=== PATIENT | female | born 1995 | race Two or more races ===

== ENCOUNTER 2024-03-16 14:57 | Emergency (ER) | payer MEDICAID, SELFPAY ==
--- NOTE | 2024-03-16 15:36 | XR_ITS ---
Examination: PA lateral chest 2 views TECHNIQUE: Upright PA lateral chest 2 views Exam date and time: March 16, 2024 1545 hours INDICATIONS: Coughing fever muscle aches beginning 3 days ago. FINDINGS: Normal heart size. Lungs are clear. The osseous structures are intact IMPRESSION: No active disease
[2024-03-16 15:44] VITALS: BP 130/82; PULSE 100; RESP 18; TEMP 36.9; O2SAT 97
[2024-03-16 15:45] VITALS: BMI 35.2
[2024-03-16 17:27] LABS: Respiratory Syncytial Virus Ag Negative (Negative); Strep A Rapid Negative (Negative)
--- NOTE | 2024-03-16 17:46 | PD.EDURI ---
Upper Respiratory Inf. RME/HPI General Chief Complaint: Flu Like Symptoms Stated Complaint: COUGH, FEVER, MUSCLE ACHES X 3 DAYS; 1200 MOTRIN Time Seen by Provider: 03/16/24 15:07 Arrival date/time: 03/16/24 14:57 28-year-old female presents the emergency department complains of cough, fever, body aches ongoing x 3 days there are no other associated symptoms or aggravating factors no other modifying factors, patient denies taking medication before coming to ER today Limitations: no limitations Related Data Previous Rx's ?Medication ?Instructions ?Recorded benzonatate 100 mg capsule 100 mg PO TID #14 caps 03/16/24 ibuprofen 800 mg tablet 800 mg PO TID PRN pain #30 tabs 03/16/24 prednisone 10 mg tablet 30 mg (3 x 10 mg) PO BID 3 days 03/16/24 #18 tabs Allergies Allergy/AdvReac Type Severity Reaction Status Date / Time No Known Allergies Allergy Verified 03/16/24 14:59 Review of Systems Review of Systems Systems Reviewed: All systems reviewed, normal except as documented Constitutional Constitutional: Reports system reviewed and no additional complaints, except as documented, Denies fever(s) and Denies headache(s) Eyes Eyes: Reports system reviewed and no additional complaints, except as documented and Denies blurry vision ENT Ears, Nose, Mouth, and Throat: Reports system reviewed and no additional complaints, except as documented, Denies headache(s), Reports nasal congestion and Reports nasal discharge Cardiovascular Cardiovascular: Reports system reviewed and no additional complaints, except as documented, Denies chest pain and Denies dyspnea Respiratory Respiratory: Reports system reviewed and no additional complaints, except as documented, Reports chest congestion, Reports cough and Denies dyspnea Gastrointestinal Gastrointestinal: Reports system reviewed and no additional complaints, except as documented and Denies abdominal pain Integumentary/Breasts Skin/Breast: Reports system reviewed and no additional complaints, except as documented and Denies rash Neurologic Neurologic: Reports system reviewed and no additional complaints, except as documented, Reports as per HPI and Denies headache(s) Past Medical History Past Medical History NEUROLOGIC: Negative Neurological Disorders CARDIAC: Negative Cardiac Disorders Social History SMOKING STATUS: Never smoker ED Exam General Limitations: Present no limitations General appearance: Present alert and in no apparent distress Head Head exam: Present atraumatic, normocephalic and normal inspection Eye Eye exam: Present normal appearance, PERRL and EOMI; Absent conjunctival injection ENT ENT exam: Present normal exam, normal oropharynx and mucous membranes moist Neck Neck exam: Present normal inspection, full ROM and trachea midline Chest Chest inspection: Present normal inspection and symmetric chest wall rise Respiratory Respiratory exam: Present normal lung sounds bilaterally; Absent respiratory distress, wheezes, stridor or accessory muscle use Cardiovascular Cardiovascular exam: Present regular rate, normal rhythm and normal heart sounds Abdominal Exam Abdominal exam: Present soft and normal bowel sounds; Absent distention, tenderness, guarding, rebound or rigidity Extremities Exam Extremities exam: Present normal inspection and full ROM Back Exam Back exam: Present normal inspection and full ROM Neurological Exam Neurological exam: Present alert, oriented X3 and CN II-XII intact Psychiatric Psychiatric exam: Present normal affect and normal mood Skin Skin exam: Present warm, dry, intact and normal color Course Quality Measures none Orders Category Date Time Status Bedside Influenza A&B Antigen Test NOW Care 03/16/24 15:07 Completed XR chest 2V Stat Exams 03/16/24 15:36 Completed RSV [Respiratory Syncytial Virus Ag] Stat Lab 03/16/24 16:07 Completed Strep A Rapid Stat Lab 03/16/24 16:07 Completed Vital Signs Vital signs: Vital Signs Temperature 98.4 F 03/16/24 15:44 Pulse Rate 100 03/16/24 15:44 Respiratory Rate 18 03/16/24 15:44 Blood Pressure 130/82 03/16/24 15:44 Pulse Oximetry (%) 97 03/16/24 15:44 Oxygen Delivery Method Room Air 03/16/24 15:44 O2 saturation 975 r/a wnl Upper Respiratory Infection MDM Narrative MDM Narrative:: 28-year-old female presents the emergency department complains of cough, fever, body aches ongoing x 3 days there are no other associated symptoms or aggravating factors no other modifying factors, patient denies taking medication before coming to ER today On exam patient well-appearing patient does not appear ill or toxic and in no acute distress I suspect patient has influenza based on her symptoms Patient checked for flu and COVID patient did test positive for the flu Patient discharged home in no distress to follow-up with primary care doctor in the next 24 to 48 hours and for any worsening symptoms to return to the ER immediately Patient data External records reviewed:: [facility] previous records Clinical information provided by:: patient Social determinants that could affect healthcare access:: none Patient has the following chronic illnesses:: none How is presenting disease/condition affected by chronic disease/condition?: no chronic disease Evaluation data The following diagnostics were reviewed and interpreted by me:: lab results and radiology exam(s) Lab and/or radiology exams considered but not ordered:: Labs and radiology obtained Interpretation Summary: Reviewed by me Medications / Prescriptions Medications or Prescriptions considered but not ordered:: Given Medication administrations:: Given Consultations Consultation(s) initiated? (list below): No Diagnosis Upper Respiratory Differential Diagnosis: upper respiratory infection, sinusitis, viral infection, bronchitis and pharyngitis Most likely diagnosis given after review of the tests above:: URI Admission Indicated Admission indicated?: not indicated Admission Request Was there a request for admission?: No Disposition Plan Disposition Plan: Discharge Discharge Attestation Discharge Attestation: The patient and all family members were given an opportunity to ask questions and understood the discharge instructions. Discharge instructions specifically effects, indications for sooner follow up or return to the emergency department, and the expected course of current diagnosis. Patient condition: Stable Discharge Plan Plan Patient Disposition: HOME (Self Care) Disposition Comment: Stable Prescriptions/Referrals Prescriptions/Med Rec: New prednisone 10 mg tablet 30 mg PO BID 3 Days Qty: 18 0RF ibuprofen 800 mg tablet 800 mg PO TID PRN (Reason: pain) Qty: 30 0RF benzonatate 100 mg capsule 100 mg PO TID Qty: 14 0RF Referrals: Sander Gonzalez MD [Primary Care Provider] - In 1 week Problem List Clinical Impression: Upper respiratory infection Patient/Caregiver Discharge Instructions Education Materials: ED URI, Viral, No Abx (Adult) Additional Instructions: Please follow up with your primary care doctor in the next 24-48hrs for any worsening symptoms return here immediately Print Language: Dutch Stand Alone Forms: Priyanka Award Info., Work/School Release, Patient Portal Info Letter PA/MELANIE Supervising Physician PA/MELANIE Supervising Physician: Dr. Cintron
--- NOTE | 2024-03-16 19:35 | PC.NURSE ---
NO ANSWER FOR DC PAPERS
--- NOTE | 2024-03-16 19:51 | PC.NURSE ---
NO ANSWER FOR DC PAPERS
== END 2024-03-16 20:08 | disposition home or self-care (01) ==
PROVIDERS: Nurse Practitioner Primary Care; Emergency Provider Emergency Medicine; PCP Family Medicine
DX: J06.9 Acute upper respiratory infection, unspecified (principal)
CPT/HCPCS: 71046; 87634; 87651; 99283

== ENCOUNTER 2024-06-26 09:40 | Outpatient (AMB) | payer MEDICAID, SELFPAY ==
--- NOTE | 2024-06-26 09:44 | OBCLNT_ITS ---
Vital Signs 06/26/24 09:54 Height 1.68 m Height Method Stated Weight 103.079 kg Weight Measurement Method Standing Scale BMI 36.6 BP 112/74 Blood Pressure Source Automatic Cuff Blood Pressure Location Left Upper Arm Position Sitting Respiration 12 Pulse 63 Pulse Source Monitor Temp 97.7 F Temp Source Oral Pulse Oximetry (%) 99 Oxygen Delivery Method Room Air Allergies/Home Meds Allergies & Medications Allergies No Known Allergies Allergy (Verified 06/26/24 09:55) Medication Reconciliation benzonatate 100 mg capsule 100 mg PO TID #14 caps 03/16/24 [Rx Confirmed 06/26/24] Intake Visit Data Collection New Patient or Established: Established Patient (seen at [facility] within 3 years) Reason for Visit:: First visit for Seen by Clinical Staff ONLY (RN/MA): No [place] Ma[place] Required: No Do You Feel Safe at Home: Yes Authorities Contacted: N/A PCP or OBGYN visit in last 3 months: Yes Hx Now: Yes Are you currently on any form of Control: No Last menstrual period: 04/25/24 Pain Present Currently: No Pain Scale Used: Jerome-Spann/Numerical Pain scale:: 0 Smoking Status Smoking Status: Never smoker Questionnaires Covid-19 Vaccine Questionnaire Has patient been vacinated for Covid-19 Have you been vacinated for Covid-19: No PHQ-9 PHQ-2 Over the last 2 weeks, how often have you been bothered by any of the following problems? 1. Little interest or pleasure in doing things: not at all 2. Feeling down, depressed, or hopeless: not at all Total score: 0 PHQ-9 3. Trouble falling or staying asleep, or sleeping too much: Not at all 4. Feeling tired or having little energy: Not at all 5. Poor appetite or overeating: Not at all 6. Feeling bad about yourself - or that you are a failure or have let yourself or your family down: Not at all 7. Trouble concentrating on things, such as reading the newspaper or watching television: Not at all 8. Moving or speaking so slowly that other people could have noticed? - Or the opposite - being so fidgety or restless that you have been moving around a lot more than usual: not at all 9. Thoughts that you would be better off or of hurting yourself in some way: Not at all Total score: 0 Source: Developed by Drs. Lonny Rizzo, Shakila Agarwal, Greyson Welch and colleagues, with an educational kellie from [employer]. Depression screen completed yes Social History Living Situation History Marital Status: Single Lives With: Family Housing: House Tobacco History Smoking Status: Never smoker Second Hand Smoke Exposure: No Alcohol History Alcohol Intake: Never Domestic Abuse History Do You Feel Safe at Home: Yes Past Medical History Past Medical History Have you ever been diagnosed with any of the following: Neurological Problems Cerebrovascular Accident (CVA): No Transient Ischemic Attacks (TIA): No Dementia: No Alzheimer's Disease: No Parkinson's Disease: No Brain Tumor: No Seizures: No Guillain-[place] Syndrome: No Lyons's Palsy: No Cardiology Problems Myocardial Infarction: No Cardiac Arrhythmia: No Atrial Fibrillation: No Angina: No Rheumatic Fever: No Cardiomyopathy: No Edema: No Hypertension: No Respiratory Problems Chronic Obstructive Pulmonary Disease (COPD): No Asthma: No Bronchitis: No Emphysema: No Pneumonia: No Pulmonary Fibrosis: No Tuberculosis: No Pulmonary Embolism: No Pulmonary Edema: No Sleep Apnea: No CPAP Dependent: No Respiratory Aspiration: No Hx Cough: No Cough: No Wheezing: No Chest Deformities: No Smoking: No Smoking Cessation Counseling: No Smoking Exposure: No Tobacco Use: No Stomache/Intestinal Problems Liver Cancer: No Hepatitis: No Cirrhosis: No Pancreatic Cancer: No Pancreatitis: No Celiac Disease: No Gall Bladder Disease: No Clark's Esophagus: No Genital/Urinary Problems Chronic Kidney Disease: No Renal Disease: No Kidney Stones: No Polycystic Kidney Disease: No Neurogenic Bladder: No Reproductive Problems Breast Cancer: No Genital Herpes: No Gonorrhea: No Pelvic Inflammatory Disease: No Polycystic Ovarian Syndrome: No Previous Pregnancies: Yes Musculoskeletal Problems Muscular Dystrophy: No Myasthenia Gravis: No Marfan's Syndrome: No Bone Cancer: No Arthritis: No Fractures: No Head,Eye,Nose,Throat Problems Cataracts: No Glaucoma: No Blind: No Retinal Detachment: No Endocrine Problems Diabetes Mellitus Type 1: No Diabetes Mellitus Type 2: No Hypoglycemia: No [place]'s Syndrome: No Wilfred's Disease: No Hyperthyroidism: No Adrenal Disease: No Graves' Disease: No Blood Problems Anemia: No Leukemia: No Hemophilia: No Thalassemia: No Sickle Cell Disease: No Clotting Problems: No Psychologic Problems Depression: No Anxiety: No Other Problems Hospitalization: No Autoimmune Disease: No Down Syndrome: No Autism: No Measles: No Mumps: No Rubella (Macanese Measles): No Hepatitis A: No Hepatitis B: No Hepatitis C: No Cancer: No Cervical Cancer: No Lung Cancer: No Surgical History Angioplasty: No Appendectomy: No Bariatric Surgery: No Breast Surgery: No Cancer Surgery: No Carotid Endarterectomy: No Pacemaker: No Sinus Surgery: No Ureter Stent: No History of Present Illness HPI Narrative Rosaura Holman, a multiparous woman with a history of two vaginal deliveries and one , presents for her first visit of her current . Her last menstrual period was on April 25, 2024, making her approximately 8 weeks and 6 days at the time of this visit. The patient reports no major issues during her previous pregnancies, including no history of gestational diabetes, hypertension, or preeclampsia. She has been taking [id number] vitamins. When asked about common symptoms, Rosaura denies experiencing any significant nausea or vomiting. Rosaura's obstetric history is notable for three previous pregnancies, all spaced approximately three years apart. Her youngest child will be [age] years old in December. All of her previous deliveries occurred at [facility]. The patient currently resides in [facility]. Surgical History - section () for third - Two vaginal deliveries prior to Medications and Supplements - vitamins - Bought [id number] Social History - Living Situation: Lives in [facility] - Children: Has three children, each spaced 3 years apart Review of Systems Gastrointestinal: Negative for nausea, vomiting. OB Ultrasound OB Ultrasound Ultrasound technique: transabdominal Gestational sac assessment: Presence, location, size, shape: - Gestational age: 9 weeks - heartbeat: 154 bpm - sac: Present, round - Placenta: Present OB Initial Visit OB Flowsheet OB Flowsheet Initial Weight: Not Recorded Date -?-?-?-?-?-?-?-?-?-?-?-?- EGA Weight Edema CTX Effacement BP Fundal ht Pres Dilation Effacement Station Visit Note Alb Glu FHR Mov 06/26/24 -?-?-?-?-?-?-?-?-?-?-?-?- 9w 0d 103.079 kg 112/74 Ivis Holman is a (3 vaginal deliveries, 1 ) presenting for her first visit at 8 weeks and 6 days gestation based on LMP. - Perform initial lab work incl uding blood type, infection screening - Order genetic screening for Down syndr ome and other genetic abnormalities - Transfer care to [facility] [place] t 28-30 weeks gestation due to history of and current hospital's policy - Schedule 4-week follow-up appointment for next obstetric sonogram. - Continue [id number] vit amins - Provide education on option for gender reveal from genetic screening results - Follow up in 4 weeks for next obstetric sonogram 154 Menstrual History Menstrual reliability: definite Flow: normal Menstrual regularity: regular Monthly: Yes Age at menarche: 15 On control pills at conception: No Associated symptoms (LMP): Denies amenorrhea, nausea, vomiting, fatigue, breast tenderness, urinary frequency, irritability, bloating or other OB History : 5 Para: 3 Hx Total # of Abortions (Spontaneous & Elective): 1 # of Living Children: 3 Infection History & Risk Evaluation History of STDs: none Genetic Screening & History Genetic Screening/Teratology Counseling - Includes patient, baby's father, or anyone in either family with: 1. Patient's age 35 years or older as of estimated date of delivery: No 2. Thalassemia (Arabic, Latvian, Mediterranean, or Background); MCV less than 80: No 3. Neural Tube Defect (Meningomyelocele, Spina Bifida, or Anencephaly): No 4. Congenital Heart Defect: No 5. Down Syndrome: No 6. Steven-Sachs (Ashkenazi Uatsdin, Cajun, Georgian Icelandic): No 7. Jimmy Disease (Ashkenazi Uatsdin): No 8. Familial Dysautonomia (Ashkenazi Uatsdin): No 9. Sickle Cell Disease or Trait (): No 10. Hemophilia or other blood disorders: No 11. Muscular Dystrophy: No 12. Cystic Fibrosis: No 13. Tama's Chorea: No 14. Mental Retardation/Autism: No 15. Other inherited genetic or chromosomal disorder: No 16. Maternal Metabolic Disorder (EG,TYPE 1 Diabetes, PKU): No 17. Patient or baby's father had a child with defects not listed above: No 18. Recurrent loss or a stillbirth: No 19. Medications (including supplements, vitamins, herbs or otc drugs)/illicit/recreational drugs/alcohol since last menstrual period: No 20. Any other: No Infection History 1. Live with someone with TB or exposed to TB: No 2. Rash or viral illness since last menstrual period: No 3. Hepatitis B,C: No Other (see comments) Source: [employer] Review of Systems Review of Systems Systems Reviewed: All systems reviewed, normal except as documented Constitutional Constitutional: Denies fatigue Gastrointestinal Gastrointestinal: Denies bloating, Denies nausea and Denies vomiting Genitourinary Genitourinary: Denies amenorrhea and Denies urinary frequency Psychiatric Psychiatric: Denies irritability Endocrine Endocrine: Denies fatigue Exam General Limitations: no limitations General Appearance: alert, in no apparent distress, comfortable, cooperative, healthy appearing, well developed and well groomed Head Head exam: atraumatic, normocephalic and normal inspection Neck Neck exam: Present normal inspection, full ROM and trachea midline Abdominal Abdominal exam: Present soft and normal bowel sounds Psych Psychiatric exam: Present normal affect and normal mood Skin Skin exam: Present warm, dry, intact and normal color Assessment & Plan Diagnosis / Problem List (1) Supervision of high risk , unspecified, first trimester: Status: Acute (2) Hx successful (vaginal after ), currently : Status: Acute (3) Maternal care for low transverse scar from previous delivery: Status: Acute Plan Rosaura Holman is a (3 vaginal deliveries, 1 ) presenting for her first visit at 8 weeks and 6 days gestation based on LMP. Intrauterine Assessment: Patient reports LMP of April 25, 2024, consistent with 8 weeks and 6 days gestation. Transvaginal ultrasound confirms intrauterine with crown-rump length consistent with 9 weeks gestation. heartbeat visualized and measured at 154 bpm. sac appears normal and round. No abnormalities noted on ultrasound. Plan: - Perform initial lab work including blood type, infection screening - Order genetic screening for Down syndrome and other genetic abnormalities - Transfer care to [facility] [place] at 28-30 weeks gestation due to history of and current hospital's policy - Schedule 4-week follow-up appointment for next obstetric sonogram care Assessment: at 8 weeks and 6 days gestation presenting for initial visit. Patient reports taking [id number] vitamins. No history of gestational diabetes, hypertension, or preeclampsia in previous pregnancies. Currently denies nausea or vomiting. Plan: - Continue [id number] vitamins - Provide education on option for gender reveal from genetic screening results - Follow up in 4 weeks for next obstetric sonogram Office Procedures OB Clinic LOC & Office Proc's Nursing/Assessment Patient Status: Established Patient OB Clinic Nursing Assessment: Medication Reconciliation, Update PMH in EMR and Vital Signs OB Clinic Coordination of Care: Complex Care and Chronic Disease 1-5, Consent,records obtained, informed consent, Education Simp Pt/Fam, Lab and Imaging orders and Staff clarify orders Special Needs: Heart tones Established Patient Charge Established Patient Point Assignment: 130 Established Patient Point Charge: EP Level 4 (120-155)
[2024-06-26 09:54] VITALS: BP 112/74; PULSE 63; RESP 12; TEMP 36.5; O2SAT 99; BMI 36.6
== END 2024-06-26 10:10 | disposition home or self-care (01) ==
LOC: HODSOBC 09:40
PROVIDERS: PCP Family Medicine; Referring Provider Family Medicine; Supervising Provider Obstetrics & Gynecology; Visit Provider Obstetrics & Gynecology
DX: O09.291 Supervision of pregnancy with other poor reproductive or obstetric history, first trimester (principal); O34.211 Maternal care for low transverse scar from previous cesarean delivery; Z3A.08 8 weeks gestation of pregnancy
CPT/HCPCS: 99214; G0463

== ENCOUNTER 2024-07-25 11:24 | Outpatient (AMB) | payer MEDICAID, SELFPAY ==
[2024-07-25 11:30] VITALS: BP 137/77; PULSE 90; RESP 18; TEMP 36.2; O2SAT 98; BMI 36.7
--- NOTE | 2024-07-25 11:30 | OBCLNT_ITS ---
Vital Signs 07/25/24 11:30 Height 1.68 m Height Method Stated Weight 103.646 kg Weight Measurement Method Standing Scale BMI 36.7 BP 137/77 H Blood Pressure Source Automatic Cuff Blood Pressure Location Left Upper Arm Position Sitting Respiration 18 Pulse 90 Pulse Source Monitor Temp 97.2 F Temp Source Oral Pulse Oximetry (%) 98 Oxygen Delivery Method Room Air Allergies/Home Meds Allergies & Medications Allergies No Known Allergies Allergy (Verified 07/25/24 11:31) Medication Reconciliation benzonatate 100 mg capsule 100 mg PO TID #14 caps 03/16/24 [Rx Confirmed 07/25/24] cephalexin 500 mg capsule 500 mg PO QID 7 days #28 caps 07/25/24 [Rx] Intake Visit Data Collection New Patient or Established: Established Patient (seen at [facility] within 3 years) Reason for Visit:: OB CHECK Seen by Clinical Staff ONLY (RN/MA): 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 1. Little interest or pleasure in doing things: not at all 2. Feeling down, depressed, or hopeless: not at all Total score: 0 PHQ-9 3. Trouble falling or staying asleep, or sleeping too much: Not at all 4. Feeling tired or having little energy: Not at all 5. Poor appetite or overeating: Not at all 6. Feeling bad about yourself - or that you are a failure or have let yourself or your family down: Not at all 7. Trouble concentrating on things, such as reading the newspaper or watching television: Not at all 8. Moving or speaking so slowly that other people could have noticed? - Or the opposite - being so fidgety or restless that you have been moving around a lot more than usual: not at all 9. Thoughts that you would be better off or of hurting yourself in some way: Not at all Total score: 0 If you checked off any problems, how difficult have these problems made it for you to do your work, take care of things at home, or get along with other people?: not difficult at all Source: Developed by Drs. Lonny Rizzo, Shakila Agarwal, Greyson Welch and colleagues, with an educational kellie from [employer]. 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 - Patient reports experiencing: - Nausea, particularly after taking vitamins - Frequent headaches - She denies: - Current nausea at the time of the visit No contractions/ LOF/VB, reports good FM No JARQUIN/VC/RUQ/Epig pain Care OB Visit Log OB Flowsheet Initial Weight: Not Recorded Date -?-?-?--?-?-?-?-?-?-?-?-?- EGA Weight BP Alb Glu CTX Pres Fundal ht FHR Mov Dilation Station Effacement Hx Notes Visit Note 06/26/24 -?-?-?-?-?-?-?-?-?-?-?-?- 9w 0d 103.079 kg 112/74 154 Rosaura Holman is a (3 vaginal deliveries, 1 ) presenting for her first visit at 8 weeks and 6 days gestation based on LMP. - Perform initial lab work incl uding blood type, infection screening - Order genetic screening for Down syndr ome and other genetic abnormalities - Transfer care to [facility] [place] a t 28-30 weeks gestation due to history of and current hospital's policy - Schedule 4-week follow-up appointment for next obstetric sonogram. - Continue [id number] vit amins - Provide education on option for gender reveal from genetic screening results - Follow up in 4 weeks for next obstetric sonogram 07/25/24 -?-?-?-?-?-?-?-?-?-?-?-?- 13w 1d 103.646 kg 137/77 at 13 weeks and 1 day gestation, presents for routine care. Reports nausea after vitamins and frequent headaches; no active nausea at visit. FHT 165 bpm. History of prior C- section with successful . UTI with E. coli on culture. Plan: Prescribe antibiotics for UTI Refer to [facility] for anatomy s can in 20 days Gender results placed in sealed envelope May hold vitamins temporarily i f nausea persists Return in 4 weeks precautions reviewed KRYSTIAN Calculator Estimated Delivery Date Method Current WG Current Estimate 01/29/25 Ultrasound #1 13w 4d Other Estimates 01/30/25 LMP (Certain) 13w 3d Exam General General Appearance: alert, in no apparent distress and healthy appearing Head Head exam: atraumatic Neck Neck exam: Present normal inspection and trachea midline Chest Chest inspection: Present normal inspection and symmetric chest wall rise External exam: Present normal external exam; Absent tenderness Neuro Neurological exam: Present oriented X3 Psych Psychiatric exam: Present normal affect and normal mood Office Procedures OB Clinic LOC & Office Proc's Nursing/Assessment Patient Status: Established Patient OB Clinic Nursing Assessment: Medication Reconciliation, Update PMH in EMR and Vital Signs OB Clinic Coordination of Care: Education Complex Pt/Fam, Consent,records obtained, informed consent, Results/Orders obtained and Staff clarify orders Special Needs: Heart tones Established Patient Charge Established Patient Point Assignment: 100 Established Patient Point Charge: EP Level 3 (80-115) Assessment & Plan Diagnosis / Problem List (1) Supervision of high risk , unspecified, first trimester: Status: Acute (2) UTI in : Status: Acute Plan Problem List - Urinary tract infection - Assessment - Intrauterine at 13 weeks 1 day gestation - Urinary tract infection (UTI) with E. coli, sensitive to most antibiotics - 5 para 3 with history of previous and successful - Nausea and vomiting associated with vitamins - Headaches in early - heart rate 165 bpm Plan - Prescribe antibiotics for urinary tract infection - Referral sent to [facility] for ultrasound in 20 days - Follow up appointment in one month - Gender results placed in sealed envelope for gender reveal - Continue vitamins, but can hold off temporarily if experiencing severe nausea Educated the patient on labor signs, including regular contractions, lower back pain, and changes in vaginal discharge. Advised avoiding heavy lifting and getting adequate rest. Instructed to contact the office immediately if any signs occur. Discussed the importance of a balanced diet rich in folic acid, iron, and calcium, and provided a list of recommended and to-avoid foods. Emphasized avoiding high-sugar foods to reduce gestational diabetes risk. Encouraged hydration and frequent, small meals for energy..
== END 2024-07-25 11:45 | disposition home or self-care (01) ==
LOC: HODSOBC 11:24
PROVIDERS: PCP Obstetrics & Gynecology; Referring Provider Obstetrics & Gynecology; Supervising Provider Obstetrics & Gynecology; Visit Provider Obstetrics & Gynecology
DX: O09.291 Supervision of pregnancy with other poor reproductive or obstetric history, first trimester (principal); O34.219 Maternal care for unspecified type scar from previous cesarean delivery; O09.891 Supervision of other high risk pregnancies, first trimester; Z3A.13 13 weeks gestation of pregnancy; O23.41 Unspecified infection of urinary tract in pregnancy, first trimester; N39.0 Urinary tract infection, site not specified; B96.20 Unspecified Escherichia coli [E. coli] as the cause of diseases classified elsewhere
CPT/HCPCS: 99213; G0463

== ENCOUNTER 2024-08-25 10:38 | Outpatient (AMB) | payer MEDICAID, SELFPAY ==
[2024-08-25 10:52] VITALS: BP 137/77; PULSE 76; RESP 17; TEMP 36.6; O2SAT 97; BMI 36.3
--- NOTE | 2024-08-25 10:52 | AMB.OBVISIT ---
Vital Signs 08/25/24 10:52 Height 1.68 m Height Method Measured Weight 102.739 kg Weight Measurement Method Standing Scale BMI 36.3 BP 137/77 H Blood Pressure Source Automatic Cuff Blood Pressure Location Right Upper Arm Position Sitting Respiration 17 Pulse 76 Pulse Source Monitor Temp 97.8 F Temp Source Temporal Artery Scan Pulse Oximetry (%) 97 Oxygen Delivery Method Room Air Allergies/Home Meds Allergies & Medications Allergies No Known Allergies Allergy (Verified 08/25/24 10:57) Medication Reconciliation benzonatate 100 mg capsule 100 mg PO TID #14 caps 03/16/24 [Rx Confirmed 08/25/24] omeprazole 40 mg capsule,delayed release 40 mg PO QDAY 30 days #30 caps 08/25/24 [Rx] Intake Visit Data Collection New Patient or Established: Established Patient (seen at [facility] within 3 years) Reason for Visit:: OBC Seen by Clinical Staff ONLY (RN/MA): No Last Trimmer Required: No Do You Feel Safe at Home: Yes Authorities Contacted: N/A PCP or OBGYN visit in last 3 months: Yes Date of Last PCP or OBGYN visit: 07/25/24 Hx Now: Yes Are you currently on any form of Control: No Pain Present Currently: No Pain Scale Used: Jerome-Spann/Numerical Pain scale:: 0 Smoking Status Smoking Status: Never smoker Questionnaires Covid-19 Vaccine Questionnaire Has patient been vacinated for Covid-19 Have you been vacinated for Covid-19: Yes PHQ-9 PHQ-2 Over the last 2 weeks, how often have you been bothered by any of the following problems? 1. Little interest or pleasure in doing things: not at all 2. Feeling down, depressed, or hopeless: not at all Total score: 0 PHQ-9 3. Trouble falling or staying asleep, or sleeping too much: Not at all 4. Feeling tired or having little energy: Not at all 5. Poor appetite or overeating: Not at all 6. Feeling bad about yourself - or that you are a failure or have let yourself or your family down: Not at all 7. Trouble concentrating on things, such as reading the newspaper or watching television: Not at all 8. Moving or speaking so slowly that other people could have noticed? - Or the opposite - being so fidgety or restless that you have been moving around a lot more than usual: not at all 9. Thoughts that you would be better off or of hurting yourself in some way: Not at all Total score: 0 If you checked off any problems, how difficult have these problems made it for you to do your work, take care of things at home, or get along with other people?: not difficult at all Source: Developed by Drs. Lonny Rizzo, Shakila Agarwal, Greyson Welch and colleagues, with an educational kellie from [employer]. 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 History Past Medical History: No Hx Neurological Disorders, No Hx Hyperthyroidism, No Hx Breast Cancer, No Hx Cardiac Disorders, No Hx Hypertension, No Hx Cancer, No Hx Anemia, No Hx Renal Disease, No Hx Diabetes Mellitus Type 1, No Hx Diabetes Mellitus Type 2 and No Hx Polycystic Ovarian Syndrome Care OB Visit Log OB Flowsheet Initial Weight: Not Recorded Date <del>?</del> EGA Weight BP Alb Glu CTX Pres Fundal ht FHR Mov Dilation Station Effacement Hx Notes Visit Note 06/26/24 <del>?</del> 9w 0d 103.079 kg 112/74 154 Rosaura Holman is a (3 vaginal deliveries, 1 ) presenting for her first visit at 8 weeks and 6 days gestation based on LMP. - Perform initial lab work including blood type, infection screening - Order genetic screening for Down syndrome and other genetic abnormalities - Transfer care to [facility] [place] at 28-30 weeks gestation due to history of and current hospital's policy - Schedule 4-week follow-up appointment for next obstetric sonogram. - Continue [id number] vitamins - Provide education on option for gender reveal from genetic screening results - Follow up in 4 weeks for next obstetric sonogram 07/25/24 <del>?</del> 13w 1d 103.646 kg 137/77 at 13 weeks and 1 day gestation, presents for routine care. Reports nausea after vitamins and frequent headaches; no active nausea at visit. FHT 165 bpm. History of prior with successful . UTI with E. coli on culture. Plan: Prescribe antibiotics for UTI Refer to [facility] for anatomy scan in 20 days Gender results placed in sealed envelope May hold vitamins temporarily if nausea persists Return in 4 weeks precautions reviewed 08/25/24 <del>?</del> 17w 4d 102.739 kg 137/77 absent unstable 147 at 17w4d with improved N/V, ongoing GERD symptoms, reports movement. US reassuring, FHR 147. Noted weight loss. Prior CS with successful , planning repeat . Plan: Start omeprazole, f/u 4w, GTT next visit, referral to [place] at 28w, Rx sent to [facility]. KRYSTIAN Calculator Estimated Delivery Date Method Current WG Current Estimate 01/29/25 Ultrasound #1 22w 6d Other Estimates 01/30/25 LMP (Certain) 22w 5d Office Procedures OB Clinic LOC & Office Proc's Nursing/Assessment Patient Status: Established Patient OB Clinic Nursing Assessment: Medication Reconciliation, Update PMH in EMR and Vital Signs OB Clinic Coordination of Care: Education Complex Pt/Fam, Consent,records obtained, informed consent, Lab and Imaging orders and Staff clarify orders Special Needs: Heart tones Established Patient Charge Established Patient Point Assignment: 110 Established Patient Point Charge: EP Level 3 (80-115) Assessment & Plan Diagnosis / Problem List (1) Maternal care for low transverse scar from previous delivery: Status: Acute
== END 2024-08-25 11:19 | disposition home or self-care (01) ==
LOC: HODSOBC 10:38
PROVIDERS: PCP Obstetrics & Gynecology; Referring Provider Obstetrics & Gynecology; Supervising Provider Obstetrics & Gynecology; Visit Provider Obstetrics & Gynecology
DX: O09.292 Supervision of pregnancy with other poor reproductive or obstetric history, second trimester (principal); O34.211 Maternal care for low transverse scar from previous cesarean delivery; O09.892 Supervision of other high risk pregnancies, second trimester; O99.612 Diseases of the digestive system complicating pregnancy, second trimester; K21.9 Gastro-esophageal reflux disease without esophagitis; Z3A.17 17 weeks gestation of pregnancy
CPT/HCPCS: 99213; G0463

== ENCOUNTER 2024-12-11 11:32 | Outpatient (AMB) | payer MEDICAID, SELFPAY ==
[2024-12-11 11:44] VITALS: BP 121/75; PULSE 87; RESP 16; TEMP 36.8; O2SAT 99; BMI 39.2
--- NOTE | 2024-12-11 11:44 | OBCLNT_ITS ---
Vital Signs 12/11/24 11:44 Height 1.68 m Height Method Stated Weight 110.677 kg Weight Measurement Method Standing Scale BMI 39.2 BP 121/75 Blood Pressure Source Automatic Cuff Blood Pressure Location Left Upper Arm Position Sitting Respiration 16 Pulse 87 Pulse Source Monitor Temp 98.2 F Temp Source Oral Pulse Oximetry (%) 99 Oxygen Delivery Method Room Air Allergies/Home Meds Allergies & Medications Allergies No Known Allergies Allergy (Verified 12/11/24 11:45) Medication Reconciliation benzonatate 100 mg capsule 100 mg PO TID #14 caps 03/16/24 [Rx Confirmed 12/11/24] omeprazole 40 mg capsule,delayed release 40 mg PO QDAY 30 days #30 caps 08/25/24 [Rx Confirmed 12/11/24] Intake Visit Data Collection New Patient or Established: Established Patient (seen at [facility] within 3 years) Reason for Visit:: OBC Seen by Clinical Staff ONLY (RN/MA): No 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 1. Little interest or pleasure in doing things: not at all 2. Feeling down, depressed, or hopeless: not at all Total score: 0 PHQ-9 3. Trouble falling or staying asleep, or sleeping too much: Not at all 4. Feeling tired or having little energy: Not at all 5. Poor appetite or overeating: Not at all 6. Feeling bad about yourself - or that you are a failure or have let yourself or your family down: Not at all 7. Trouble concentrating on things, such as reading the newspaper or watching television: Not at all 8. Moving or speaking so slowly that other people could have noticed? - Or the opposite - being so fidgety or restless that you have been moving around a lot more than usual: not at all 9. Thoughts that you would be better off or of hurting yourself in some way: Not at all Total score: 0 If you checked off any problems, how difficult have these problems made it for you to do your work, take care of things at home, or get along with other people?: not difficult at all Source: Developed by Drs. Lonny Rizzo, Shakila Agarwal, Greyson Welch and colleagues, with an educational kellie from [employer]. 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 Past Medical History: No Hx Neurological Disorders, No Hx Hyperthyroidism, No Hx Breast Cancer, No Hx Cardiac Disorders, No Hx Hypertension, No Hx Cancer, No Hx Anemia, No Hx Renal Disease, No Hx Diabetes Mellitus Type 1, No Hx Diabetes Mellitus Type 2 and No Hx Polycystic Ovarian Syndrome Care OB Visit Log OB Flowsheet Initial Weight: Not Recorded Date -?-?-?-?-?-?-?-?-?-?-?-?- EGA Weight BP Alb Glu CTX Pres Fundal ht FHR Mov Dilation Station Effacement Hx Notes Visit Note 06/26/24 -?-?-?-?-?-?-?-?-?-?-?-?- 9w 0d 103.079 kg 112/74 154 Rosaura Holman is a (3 vaginal deliveries, 1 ) presenting for her first visit at 8 weeks and 6 days gestation based on LMP. - Perform initial lab work incl uding blood type, infection screening - Order genetic screening for Down syndr ome and other genetic abnormalities - Transfer care to [facility] a t 28-30 weeks gestation due to history of and current hospital's policy - Schedule 4-week follow-up appointment for next obstetric sonogram. - Continue [id number] vit amins - Provide education on option for gender reveal from genetic screening results - Follow up in 4 weeks for next obstetric sonogram 07/25/24 -?-?-?-?-?-?-?-?-?-?-?-?- 13w 1d 103.646 kg 137/77 at 13 weeks and 1 day gestation, presents for routine care. Reports nausea after vitamins and frequent headaches; no active nausea at visit. FHT 165 bpm. History of prior C- section with successful . UTI with E. coli on culture. Plan: Prescribe antibiotics for UTI Refer to [facility] for anatomy s can in 20 days Gender results placed in sealed envelope May hold vitamins temporarily i f nausea persists Return in 4 weeks precautions reviewed 08/25/24 -?-?-?-?-?-?-?-?-?-?-?-?- 17w 4d 102.739 kg 137/77 absent unstable 147 at 17w4d with improved N/V, ongoing GERD symptoms, reports movement. US reassuring, FHR 147. Noted weight loss. Prior CS with successful , planning repeat . Plan: Start omeprazole, f/u 4w, GTT next visit, referral to [place] at 28w, Rx [facility]. 12/11/24 -?-?-?-?-?-?-?-?-?-?-?-?- 33w 0d 110.677 kg 121/75 KRYSTIAN Calculator Estimated Delivery Date Method Current WG Current Estimate 01/29/25 Ultrasound #1 33w 0d Other Estimates 01/30/25 LMP (Certain) 32w 6d Notes Visit Date: 12/11/24 Last Updated by: Dheeraj Lopez MD - Ultrasound (09/20/2024): - Single living fetus - Gestational age: 21 weeks and 1 day - KRYSTIAN: 01/30/2025 - Composite age: 20 weeks and 6 days - Single pocket within normal limits - No gross structural abnormalities detected - Cervix: 4.8 cm with no funneling - Placenta: Anterior, no previa - Presentation: Breech - Normal uterus and adnexa - Ultrasound (07/08/2024): - Single living fetus - Gestational age: 28 weeks and 1 day - Estimated weight: 1201 grams (42nd percentile for gestational age) - YOLETTE: Normal - anatomy: Within normal limits - No abnormalities detected - Placenta: Anterior, no previa - Presentation: Cephalic - Normal uterus and adnexa Office Procedures OBC Clinic LOC & Office Proc's Nursing/Assessment Patient Status: Established Patient OB Clinic Nursing Assessment: Medication Reconciliation, Update PMH in EMR and Vital Signs OB Clinic Coordination of Care: Education Complex Pt/Fam, Consent,records obtained, informed consent, Lab and Imaging orders, Results/Orders obtained and Staff clarify orders Special Needs: Heart tones Established Patient Charge Established Patient Point Assignment: 115 Established Patient Point Charge: EP Level 3 (80-115) Assessment & Plan Diagnosis / Problem List (1) Maternal care for low transverse scar from previous delivery: Status: Acute (2) Hx successful (vaginal after ), currently : Status: Acute Plan Problem List - , third trimester - History of section - Missed care appointments Assessment at 33 weeks 0 days gestation with KRYSTIAN 01/29/2025. Patient has not been seen for care in approximately 4.5 months. History of two prior sections, now desiring . Anterior placenta, no previa noted on previous ultrasounds. Last ultrasound at 28 weeks 1 day showed EFW 1201 grams (42nd percentile), normal anatomy, and cephalic presentation. Patient has missed several routine screenings, including glucose tolerance test. heart rate noted to be 150-152 bpm, within normal limits. Plan - Order 1hr glucose, CBC, and RPR labs - Refer patient to [place] for delivery - Schedule follow-up appointment in one week - Obtain and review all [facility] ultrasounds from current - Patient to attend scheduled appointment with [facility] on 01/03/2025 at 36 weeks gestation 1. Progress Reviewed gestational age, growth, and heart rate. Planned frequent visits (every 2 weeks until 36 weeks, then weekly). 2. Instructed patient to monitor movements and report decreases immediately. 3. Testing Counseled on routine third-trimester labs per guidelines. Discussed potential need for ultrasound or monitoring based on risk factors. 4. Preeclampsia Precaution Educated on preeclampsia signs: severe headache, vision changes, right upper quadrant pain, sudden swelling. Advised urgent reporting of symptoms and discussed blood pressure monitoring if high risk. 5. Labor Precautions Reviewed labor signs: regular contractions, pelvic pressure, back pain, bleeding, or fluid leakage. Instructed to seek immediate care for these symptoms. 6. Lifestyle and Delivery Preparation Reinforced vitamins, nutrition, and safe activity. Discussed plan, pain management, and . Advised on labor preparation (e.g., hospital bag) and expectations. 7. Psychosocial Support Assessed emotional well-being and offered resources for mental health or parenting support.
== END 2024-12-11 11:51 | disposition home or self-care (01) ==
PROVIDERS: Supervising Provider Obstetrics & Gynecology; Visit Provider Obstetrics & Gynecology
DX: O09.293 Supervision of pregnancy with other poor reproductive or obstetric history, third trimester (principal); O34.211 Maternal care for low transverse scar from previous cesarean delivery; Z3A.33 33 weeks gestation of pregnancy
CPT/HCPCS: 99213; G0463

== ENCOUNTER 2024-12-21 14:39 | Outpatient (AMB) | payer MEDICAID, SELFPAY ==
[2024-12-21 14:45] VITALS: BP 120/74; PULSE 72; RESP 14; TEMP 36.4; O2SAT 97; BMI 39.2
--- NOTE | 2024-12-21 14:45 | OBCLNT_ITS ---
Vital Signs 12/21/24 14:45 Height 1.68 m Height Method Stated Weight 110.733 kg Weight Measurement Method Standing Scale BMI 39.2 BP 120/74 Blood Pressure Source Automatic Cuff Blood Pressure Location Left Upper Arm Position Sitting Respiration 14 Pulse 72 Pulse Source Monitor Temp 97.6 F Temp Source Oral Pulse Oximetry (%) 97 Oxygen Delivery Method Room Air Allergies/Home Meds Allergies & Medications Allergies No Known Allergies Allergy (Verified 12/28/24 15:25) Medication Reconciliation benzonatate 100 mg capsule 100 mg PO TID #14 caps 03/16/24 [Rx Confirmed 12/28/24] omeprazole 40 mg capsule,delayed release 40 mg PO QDAY 30 days #30 caps 08/25/24 [Rx Confirmed 12/28/24] blood sugar diagnostic (Blood Glucose Test strips) #100 ea 12/21/24 [Rx Confirmed 12/28/24] blood-glucose meter #1 ea 12/21/24 [Rx Confirmed 12/28/24] lancets 21 gauge #100 ea 12/21/24 [Rx Confirmed 12/28/24] Intake Visit Data Collection New Patient or Established: Established Patient (seen at [facility] within 3 years) Reason for Visit:: CARE Seen by Clinical Staff ONLY (RN/MA): No Informatics Physician Liaison Required: No Do You Feel Safe at Home: Yes Authorities Contacted: N/A PCP or OBGYN visit in last 3 months: Yes Hx Now: Yes Are you currently on any form of Control: No Pain Present Currently: No Pain Scale Used: Jerome-Spann/Numerical Pain scale:: 0 Smoking Status Smoking Status: Never smoker Questionnaires Covid-19 Vaccine Questionnaire Has patient been vacinated for Covid-19 Have you been vacinated for Covid-19: No PHQ-9 PHQ-2 Over the last 2 weeks, how often have you been bothered by any of the following problems? 1. Little interest or pleasure in doing things: not at all 2. Feeling down, depressed, or hopeless: not at all Total score: 0 PHQ-9 3. Trouble falling or staying asleep, or sleeping too much: Not at all 4. Feeling tired or having little energy: Not at all 5. Poor appetite or overeating: Not at all 6. Feeling bad about yourself - or that you are a failure or have let yourself or your family down: Not at all 7. Trouble concentrating on things, such as reading the newspaper or watching television: Not at all 8. Moving or speaking so slowly that other people could have noticed? - Or the opposite - being so fidgety or restless that you have been moving around a lot more than usual: not at all 9. Thoughts that you would be better off or of hurting yourself in some way: Not at all Total score: 0 Source: Developed by Drs. Lonny Rizzo, Shakila Agarwal, Greyson Welch and colleagues, with an educational kellie from [employer]. 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: Past Medical History Past Medical History: No Hx Neurological Disorders, No Hx Hyperthyroidism, No Hx Breast Cancer, No Hx Cardiac Disorders, No Hx Hypertension, No Hx Cancer, No Hx Anemia, No Hx Renal Disease, No Hx Diabetes Mellitus Type 1, No Hx Diabetes Mellitus Type 2 and No Hx Polycystic Ovarian Syndrome Care OB Visit Log OB Flowsheet Initial Weight: Not Recorded Date -?-?-?-?-?-?-?-?-?-?-?-?- EGA Weight BP Alb Glu CTX Pres Fundal ht FHR Mov Dilation Station Effacement Hx Notes Visit Note 06/26/24 -?-?-?-?-?-?-?-?-?-?-?-?- 9w 0d 103.079 kg 112/74 154 Rosaura Holman is a (3 vaginal deliveries, 1 ) presenting for her first visit at 8 weeks and 6 days gestation based on LMP. - Perform initial lab work incl uding blood type, infection screening - Order genetic screening for Down syndr ome and other genetic abnormalities - Transfer care to [facility] a t 28-30 weeks gestation due to history of and current hospital's policy - Schedule 4-week follow-up appointment for next obstetric sonogram. - Continue [id number] vit amins - Provide education on option for gender reveal from genetic screening results - Follow up in 4 weeks for next obstetric sonogram 07/25/24 -?-?-?-?-?-?--?-?-?-?-?-?- 13w 1d 103.646 kg 137/77 at 13 weeks and 1 day gestation, presents for routine care. Reports nausea after vitamins and frequent headaches; no active nausea at visit. FHT 165 bpm. History of prior C- section with successful . UTI with E. coli on culture. Plan: Prescribe antibiotics for UTI Refer to [facility] for anatomy s can in 20 days Gender results placed in sealed envelope May hold vitamins temporarily i f nausea persists Return in 4 weeks precautions reviewed 08/25/24 -?-?-?-?-?-?-?-?-?-?-?-?- 17w 4d 102.739 kg 137/77 absent unstable 147 at 17w4d with improved N/V, ongoing GERD symptoms, reports movement. US reassuring, FHR 147. Noted weight loss. Prior CS with successful , planning repeat . Plan: Start omeprazole, f/u 4w, GTT next visit, referral to [place] at 28w, [facility] 12/11/24 -?-?-?-?-?-?-?-?-?-?-?-?- 33w 0d 110.677 kg 121/75 absent cephalic 34 15 5 active - Rosaura Holman is a 33-week female () presenting for care after a 4.5- month gap in visits due to personal circumstances. - Patient reports: - Missed several appointments due to hectic schedule and custody court proceedings for her other two children - Attended an ultrasound in [place] bu t missed glucose testing - Still considering vaginal after () - Has one more appointment scheduled [facility] on January 03 (at 36 weeks gestation) - Denies any specific complaints or symptoms during this visit Plan - Order 1hr glucose, CBC, and RPR labs - Refer patient to [facility] for l[facility] antonio hen[facility] - Schedule follow-up appointment in one week - Obtain and review all [facility] ultrasounds from [facility] - [facility] at 36 weeks gestation 12/21/24 -?-?-?-?-?-?-?-?-?-?-?-?- 34w 3d 110.733 kg 120/74 absent cephalic 35 14 5 active - Rosaura Holman is a 5 para 3 female at 34 weeks and 3 days gestation with a history of 2 previous C-sections presenting for care after being lost to follow-up for 3-tix-c-half months. - She was seen here last week after the prolonged absence from care. - Patient desires (vaginal af ter ) for which she was referred to [facility], with referral still pending. - Catch-up labs were ordered during her recent visit. Plan - Order 3-hour glucose tolerance test - Pending referral to [facility] for co nsultation - Catch-up labs were ordered KRYSTIAN Calculator Estimated Delivery Date Method Current WG Current Estimate 01/29/25 Ultrasound #1 35w 3d Other Estimates 01/30/25 LMP (Certain) 35w 2d Notes Visit Date: 12/11/24 Last Updated by: Dheeraj Lopez MD - Ultrasound (09/20/2024): - Single living fetus - Gestational age: 21 weeks and 1 day - KRYSTIAN: 01/30/2025 - Composite age: 20 weeks and 6 days - Single pocket within normal limits - No gross structural abnormalities detected - Cervix: 4.8 cm with no funneling - Placenta: Anterior, no previa - Presentation: Breech - Normal uterus and adnexa - Ultrasound (07/08/2024): - Single living fetus - Gestational age: 28 weeks and 1 day - Estimated weight: 1201 grams (42nd percentile for gestational age) - YOLETTE: Normal - anatomy: Within normal limits - No abnormalities detected - Placenta: Anterior, no previa - Presentation: Cephalic - Normal uterus and adnexa Office Procedures OBC Clinic LOC & Office Proc's Nursing/Assessment Patient Status: Established Patient OB Clinic Nursing Assessment: Medication Reconciliation, Update PMH in EMR and Vital Signs OB Clinic Coordination of Care: Complex Care and Chronic Disease 1-5, Consent,records obtained, informed consent, Education Simp Pt/Fam, 1 Ins Authorization, Lab and Imaging orders, Results/Orders obtained and Staff clarify orders Special Needs: Heart tones Established Patient Charge Established Patient Point Assignment: 150 Established Patient Point Charge: EP Level 4 (120-155) Assessment & Plan Diagnosis / Problem List (1) Abnormal glucose affecting : Status: Acute (2) Maternal care for low transverse scar from previous delivery: Status: Acute (3) Hx successful (vaginal after ), currently : Status: Acute Plan Problem List - , 34 weeks and 3 days gestation - History of multiple sections - Anemia - Abnormal glucose tolerance test Assessment 34-week 3-day patient, 5 para 3, with history of 2 previous sections who was lost to follow-up for 4.5 months. Patient has abnormal glucose screening with glucostolin of 154, requiring 3-hour glucose tolerance test. Laboratory results show anemia with hemoglobin of 10.2 and hematocrit of 33.1. Plan - Order 3-hour glucose tolerance test - Pending referral to [place] for consultation - Catch-up labs were ordered 1. Progress Reviewed gestational age, growth, and heart rate. Planned frequent visits (every 2 weeks until 36 weeks, then weekly). 2. Instructed patient to monitor movements and report decreases immediately. 3. Testing Counseled on routine third-trimester labs per guidelines. Discussed potential need for ultrasound or monitoring based on risk factors. 4. Preeclampsia Precaution Educated on preeclampsia signs: severe headache, vision changes, right upper quadrant pain, sudden swelling. Advised urgent reporting of symptoms and discussed blood pressure monitoring if high risk. 5. Labor Precautions Reviewed labor signs: regular contractions, pelvic pressure, back pain, bleeding, or fluid leakage. Instructed to seek immediate care for these symptoms. 6. Lifestyle and Delivery Preparation Reinforced vitamins, nutrition, and safe activity. Discussed plan, pain management, and . Advised on labor preparation (e.g., hospital bag) and expectations. 7. Psychosocial Support Assessed emotional well-being and offered resources for mental health or parenting support.
== END 2024-12-21 15:25 | disposition home or self-care (01) ==
LOC: HODSOBC 14:39
PROVIDERS: Supervising Provider Obstetrics & Gynecology; Visit Provider Obstetrics & Gynecology
DX: O09.293 Supervision of pregnancy with other poor reproductive or obstetric history, third trimester (principal); O34.211 Maternal care for low transverse scar from previous cesarean delivery; O09.893 Supervision of other high risk pregnancies, third trimester; O99.810 Abnormal glucose complicating pregnancy; O99.013 Anemia complicating pregnancy, third trimester; Z3A.34 34 weeks gestation of pregnancy
CPT/HCPCS: 99214; G0463

== ENCOUNTER 2024-12-28 15:15 | Outpatient (AMB) | payer MEDICAID, SELFPAY ==
--- NOTE | 2024-12-28 15:21 | OBCLNT_ITS ---
Vital Signs 12/28/24 15:22 Height 1.68 m Height Method Stated Weight 109.996 kg Weight Measurement Method Standing Scale BMI 38.9 BP 121/67 Blood Pressure Source Automatic Cuff Blood Pressure Location Left Upper Arm Position Sitting Respiration 18 Pulse 83 Pulse Source Monitor Temp 97.2 F Temp Source Oral Pulse Oximetry (%) 98 Oxygen Delivery Method Room Air Allergies/Home Meds Allergies & Medications Allergies No Known Allergies Allergy (Verified 12/28/24 15:25) Medication Reconciliation benzonatate 100 mg capsule 100 mg PO TID #14 caps 03/16/24 [Rx Confirmed 12/28/24] omeprazole 40 mg capsule,delayed release 40 mg PO QDAY 30 days #30 caps 08/25/24 [Rx Confirmed 12/28/24] blood sugar diagnostic (Blood Glucose Test strips) #100 ea 12/21/24 [Rx Confirmed 12/28/24] blood-glucose meter #1 ea 12/21/24 [Rx Confirmed 12/28/24] lancets 21 gauge #100 ea 12/21/24 [Rx Confirmed 12/28/24] Intake Visit Data Collection New Patient or Established: Established Patient (seen at [facility] within 3 years) Reason for Visit:: OBC Seen by Clinical Staff ONLY (RN/MA): No Lieutenant Firefighter Required: No Do You Feel Safe at Home: Yes Authorities Contacted: N/A PCP or OBGYN visit in last 3 months: Yes Date of Last PCP or OBGYN visit: 12/21/24 Hx Now: Yes Are you currently on any form of Control: No Pain Present Currently: No Pain Scale Used: Jerome-Spann/Numerical Pain scale:: 0 Smoking Status Smoking Status: Never smoker Immunizations Flu Vaccine in the Last 12 Months: No Flu Vaccine Exclusion Criteria: No Exclusion Criteria Questionnaires Covid-19 Vaccine Questionnaire Has patient been vacinated for Covid-19 Have you been vacinated for Covid-19: Yes PHQ-9 PHQ-2 Over the last 2 weeks, how often have you been bothered by any of the following problems? 1. Little interest or pleasure in doing things: not at all 2. Feeling down, depressed, or hopeless: not at all Total score: 0 PHQ-9 3. Trouble falling or staying asleep, or sleeping too much: Not at all 4. Feeling tired or having little energy: Not at all 5. Poor appetite or overeating: Not at all 6. Feeling bad about yourself - or that you are a failure or have let yourself or your family down: Not at all 7. Trouble concentrating on things, such as reading the newspaper or watching television: Not at all 8. Moving or speaking so slowly that other people could have noticed? - Or the opposite - being so fidgety or restless that you have been moving around a lot more than usual: not at all 9. Thoughts that you would be better off or of hurting yourself in some way: Not at all Total score: 0 If you checked off any problems, how difficult have these problems made it for you to do your work, take care of things at home, or get along with other people?: not difficult at all Source: Developed by Drs. Lonny Rizzo, Shakila Agarwal, Greyson Welch and colleagues, with an educational kellie from [employer]. 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: Past Medical History Past Medical History: No Hx Neurological Disorders, No Hx Hyperthyroidism, No Hx Breast Cancer, No Hx Cardiac Disorders, No Hx Hypertension, No Hx Cancer, No Hx Anemia, No Hx Renal Disease, No Hx Diabetes Mellitus Type 1, No Hx Diabetes Mellitus Type 2 and No Hx Polycystic Ovarian Syndrome Care OB Visit Log OB Flowsheet Initial Weight: Not Recorded Date -?-?-?-?-?-?-?-?-?-?-?-?- EGA Weight BP Alb Glu CTX Pres Fundal ht FHR Mov Dilation Station Effacement Hx Notes Visit Note 06/26/24 -?-?-?-?-?-?-?-?-?-?-?-?- 9w 0d 103.079 kg 112/74 154 Rosaura Holman is a (3 vaginal deliveries, 1 ) presenting for her first visit at 8 weeks and 6 days gestation based on LMP. - Perform initial lab work incl uding blood type, infection screening - Order genetic screening for Down syndr ome and other genetic abnormalities - [place] [facility] [place] 28-30 weeks gestation due to history of and current hospital's policy - Schedule 4-week follow-up appointment for next obstetric sonogram. - Continue [id number] vit amins - Provide education on option for gender reveal from genetic screening results - Follow up in 4 weeks for next obstetric sonogram 07/25/24 -?-?-?-?-?-?-?-?-?-?-?-?- 13w 1d 103.646 kg 137/77 at 13 weeks and 1 day gestation, presents for routine care. Reports nausea after vitamins and frequent headaches; no active nausea at visit. FHT 165 bpm. History of prior C- section with successful . UTI with E. coli on culture. Plan: Prescribe antibiotics for UTI Refer to [facility] for anatomy s can in 20 days Gender results placed in sealed envelope May hold vitamins temporarily i f nausea persists Return in 4 weeks precautions reviewed 08/25/24 -?-?-?-?-?-?-?-?-?-?-?-?- 17w 4d 102.739 kg 137/77 absent unstable 147 at 17w4d with improved N/V, ongoing GERD symptoms, reports movement. US reassuring, FHR 147. Noted weight loss. Prior CS with successful , planning repeat . Plan: Start omeprazole, f/u 4w, GTT next visit, referral to [place] at 28w, [facility]. 12/11/24 -?-?-?-?-?-?-?-?-?-?-?-?- 33w 0d 110.677 kg 121/75 absent cephalic 34 15 5 active - Rosaura Holman is a 33-week female () presenting for care after a 4.5- month gap in visits due to personal circumstances. - Patient reports: - Missed several appointments due to hectic schedule and custody court proceedings for her other two children - Attended an ultrasound in [place] bu t missed glucose testing - Still considering vaginal after () - Has one more appointment scheduled wit [facility] specialist on January 03 (at 36 weeks gestation) - Denies any specific complaints or symptoms during this visit Plan - Order 1hr glucose, CBC, and RPR labs - Refer patient to [place] for luis antonio henry - Schedule follow-up appointment in one week - Obtain and review all [facility] ultrasounds from current - Patient to attend scheduled appointmen t with [facility] on 01/03/2025 at 36 weeks gestation 12/21/24 -?-?-?-?-?-?-?-?-?-?-?-?- 34w 3d 110.733 kg 120/74 absent cephalic 35 14 5 active - Rosaura Holman is a 5 para 3 female at 34 weeks and 3 days gestation with a history of 2 previous C-sections presenting for care after being lost to follow-up for 8-mtx-i-half months. - She was seen here last week after the prolonged absence from care. - Patient desires (vaginal af ter ) for which she was referred to [place], with referral still pending. - Catch-up labs were ordered during her recent visit. Plan - Order 3-hour glucose tolerance test - Pending referral to [place] for co nsultation - Catch-up labs were ordered 12/28/24 -?-?-?-?-?-?-?-?-?-?-?-?- 35w 3d 109.996 kg 121/67 absent cephalic 37 15 8 active - Patient has been monitoring blood glucose at home with good control. - Fasting glucose: 89 mg/dL - Post-dinner glucose: 150 mg/dL - She reports a history of delivering ea rly, typically by 37 weeks gestation. - Patient has not yet heard back from [facility] facility despite being referred approximately one month ago. - She lives in [facility] and expresses c oncern about potentially not making it to [place] if she goes into labor. - [facility], emphasizing tendency to deliver early and requesting early appointment - Continue home glucose monitoring - cur rent numbers are within acceptable range, no medication needed at this time - If labor begins, come to [facility] rather than risk delivery en route to [place] - Follow-up appointment scheduled in one week - [facility] KRYSTIAN Calculator Estimated Delivery Date Method Current WG Current Estimate 01/29/25 Ultrasound #1 36w 1d Other Estimates 01/30/25 LMP (Certain) 36w 0d Notes Visit Date: 12/11/24 Last Updated by: Dheeraj Lopez MD - Ultrasound (09/20/2024): - Single living fetus - Gestational age: 21 weeks and 1 day - KRYSTIAN: 01/30/2025 - Composite age: 20 weeks and 6 days - Single pocket within normal limits - No gross structural abnormalities detected - Cervix: 4.8 cm with no funneling - Placenta: Anterior, no previa - Presentation: Breech - Normal uterus and adnexa - Ultrasound (07/08/2024): - Single living fetus - Gestational age: 28 weeks and 1 day - Estimated weight: 1201 grams (42nd percentile for gestational age) - YOLETTE: Normal - anatomy: Within normal limits - No abnormalities detected - Placenta: Anterior, no previa - Presentation: Cephalic - Normal uterus and adnexa Office Procedures OBC Clinic LOC & Office Proc's Nursing/Assessment Patient Status: Established Patient OB Clinic Nursing Assessment: Medication Reconciliation, Update PMH in EMR and Vital Signs OB Clinic Coordination of Care: Consent,records obtained, informed consent, Education Simp Pt/Fam, Lab and Imaging orders, Results/Orders obtained and Staff clarify orders Special Needs: Heart tones Established Patient Charge Established Patient Point Assignment: 110 Established Patient Point Charge: EP Level 3 (80-115) Assessment & Plan Diagnosis / Problem List (1) Abnormal glucose affecting : Status: Acute (2) Supervision of high risk , unspecified, first trimester: Status: Acute (3) Hx successful (vaginal after ), currently : Status: Acute (4) Maternal care for low transverse scar from previous delivery: Status: Acute Plan Problem List - Gestational diabetes mellitus - History of delivery - at 36 weeks gestation Assessment 29-year-old at approximately 36 weeks gestation with history of se ction and tendency for early delivery at 37 weeks. Patient demonstrates well- controlled gestational diabetes with home glucose monitoring showing fasting glucose of 89 mg/dL and postprandial glucose of 150 mg/dL, which are within acceptable range and do not require medication management. Previous one-hour glucose tolerance test showed elevated result at 154 mg/dL. heart rate monitoring shows normal rate at 158-159 bpm. Patient was previously referred to [facility] in [place] for possible (vaginal after ) but has not yet received contact from the facility. Plan - Patient to call [facility] tomorrow morning for appointment scheduling, emphasizing tendency to deliver early and requesting early appointment - Continue home glucose monitoring - current numbers are within acceptable range, no medication needed at this time - If labor begins, come to current facility rather than risk delivery en route to [place] - Follow-up appointment scheduled in one week - Provider to provide [facility] phone number 1. Progress Reviewed gestational age (almost 36 weeks), growth, and heart rate (158-159 bpm, normal). Planned frequent visits (weekly). 2. Instructed patient to monitor movements and report decreases immediately. 3. Testing Counseled on routine third-trimester labs per guidelines. Discussed potential need for ultrasound or monitoring based on risk factors. 4. Preeclampsia Precaution Educated on preeclampsia signs: severe headache, vision changes, right upper quadrant pain, sudden swelling. Advised urgent reporting of symptoms and discussed blood pressure monitoring if high risk. 5. Labor Precautions Reviewed labor signs: regular contractions, pelvic pressure, back pain, bleeding, or fluid leakage. Instructed to seek immediate care for these symptoms and advised patient of history of early delivery at 37 weeks. 6. Lifestyle and Delivery Preparation Reinforced vitamins, nutrition, and safe activity (advised not to over strain). Discussed plan, pain management, and . Advised on labor preparation and expectations. Patient referred to [facility] for delivery planning with instructions to contact them for early appointment due to tendency for early delivery. 7. Psychosocial Support Assessed emotional well-being and offered resources for mental health or pa renting support.
[2024-12-28 15:22] VITALS: BP 121/67; PULSE 83; RESP 18; TEMP 36.2; O2SAT 98; BMI 38.9
== END 2024-12-28 15:32 | disposition home or self-care (01) ==
LOC: HODSOBC 15:15
PROVIDERS: PCP Obstetrics & Gynecology; Referring Provider Obstetrics & Gynecology; Supervising Provider Obstetrics & Gynecology; Visit Provider Obstetrics & Gynecology
DX: O09.893 Supervision of other high risk pregnancies, third trimester (principal); O24.419 Gestational diabetes mellitus in pregnancy, unspecified control; O09.293 Supervision of pregnancy with other poor reproductive or obstetric history, third trimester; O34.211 Maternal care for low transverse scar from previous cesarean delivery; Z3A.35 35 weeks gestation of pregnancy
CPT/HCPCS: 99213; G0463

== ENCOUNTER 2025-01-05 13:00 | Outpatient (AMB) | payer MEDICAID, SELFPAY ==
--- NOTE | 2025-01-05 13:03 | OBCLNT_ITS ---
Vital Signs 01/05/25 13:09 Height 1.68 m Height Method Stated Weight 112.945 kg Weight Measurement Method Standing Scale BMI 40.0 BP 120/73 Blood Pressure Source Automatic Cuff Blood Pressure Location Right Upper Arm Position Sitting Respiration 18 Pulse 86 Pulse Source Monitor Temp 98.0 F Temp Source Temporal Artery Scan Pulse Oximetry (%) 98 Oxygen Delivery Method Room Air Allergies/Home Meds Allergies & Medications Allergies No Known Allergies Allergy (Verified 01/17/25 11:45) Medication Reconciliation benzonatate 100 mg capsule 100 mg PO TID #14 caps 03/16/24 [Rx Confirmed 03/01] omeprazole 40 mg capsule,delayed release 40 mg PO QDAY 30 days #30 caps 08/25/24 [Rx Confirmed 01/17/25] blood sugar diagnostic (Blood Glucose Test strips) #100 ea 12/21/24 [Rx Confirmed 01/17/25] blood-glucose meter #1 ea 12/21/24 [Rx Confirmed 01/17/25] lancets 21 gauge #100 ea 12/21/24 [Rx Confirmed 01/17/25] Intake Visit Data Collection New Patient or Established: Established Patient (seen at [facility] within 3 years) Reason for Visit:: OBC Seen by Clinical Staff ONLY (RN/MA): No Poker In Required: No Do You Feel Safe at Home: Yes Authorities Contacted: N/A PCP or OBGYN visit in last 3 months: Yes Date of Last PCP or OBGYN visit: 12/21/24 Hx Now: Yes Are you currently on any form of Control: No Pain Present Currently: Yes Pain Scale Used: Jerome-Spann/Numerical Pain scale:: 8 (VAGINAL PAIN) Smoking Status Smoking Status: Never smoker Immunizations Flu Vaccine in the Last 12 Months: No Flu Vaccine Exclusion Criteria: No Exclusion Criteria Questionnaires Covid-19 Vaccine Questionnaire Has patient been vacinated for Covid-19 Have you been vacinated for Covid-19: No PHQ-9 PHQ-2 Over the last 2 weeks, how often have you been bothered by any of the following problems? 1. Little interest or pleasure in doing things: not at all 2. Feeling down, depressed, or hopeless: not at all Total score: 0 PHQ-9 3. Trouble falling or staying asleep, or sleeping too much: Not at all 4. Feeling tired or having little energy: Not at all 5. Poor appetite or overeating: Not at all 6. Feeling bad about yourself - or that you are a failure or have let yourself or your family down: Not at all 7. Trouble concentrating on things, such as reading the newspaper or watching television: Not at all 8. Moving or speaking so slowly that other people could have noticed? - Or the opposite - being so fidgety or restless that you have been moving around a lot more than usual: not at all 9. Thoughts that you would be better off or of hurting yourself in some way: Not at all Total score: 0 If you checked off any problems, how difficult have these problems made it for you to do your work, take care of things at home, or get along with other people?: not difficult at all Source: Developed by Drs. Lonny Rizzo, Shakila Agarwal, Greyson Welch and colleagues, with an educational kellie from [employer]. 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 Medical History Past Medical History: No Hx Neurological Disorders, No Hx Hyperthyroidism, No Hx Breast Cancer, No Hx Cardiac Disorders, No Hx Hypertension, No Hx Cancer, No Hx Anemia, No Hx Renal Disease, No Hx Diabetes Mellitus Type 1, No Hx Diabetes Mellitus Type 2 and No Hx Polycystic Ovarian Syndrome Care OB Visit Log OB Flowsheet Initial Weight: Not Recorded Date -?-?-?-?-?-?-?-?-?-?-?-?- EGA Weight BP Alb Glu CTX Pres Fundal ht FHR Mov Dilation Station Effacement Hx Notes Visit Note 06/26/24 -?-?-?-?-?-?-?-?-?-?-?-?- 9w 0d 103.079 kg 112/74 154 Rosaura Holman is a (3 vaginal deliveries, 1 ) presenting for her first visit at 8 weeks and 6 days gestation based on LMP. - Perform initial lab work incl uding blood type, infection screening - Order genetic screening for Down syndr ome and other genetic abnormalities - Transfer care to [facility] a t 28-30 weeks gestation due to history of and current hospital's policy - Schedule 4-week follow-up appointment for next obstetric sonogram. - Continue ciau-rtu-ujtqrtr vit amins - Provide education on option for gender reveal from genetic screening results - Follow up in 4 weeks for next obstetric sonogram 07/25/24 -?-?-?-?-?-?-?-?-?-?-?-?- 13w 1d 103.646 kg 137/77 at 13 weeks and 1 day gestation, presents for routine care. Reports nausea after vitamins and frequent headaches; no active nausea at visit. FHT 165 bpm. History of prior C- section with successful . UTI with E. coli on culture. Plan: Prescribe antibiotics for UTI Refer to [facility] for anatomy s can in 20 days Gender results placed in sealed envelope May hold vitamins temporarily i f nausea persists Return in 4 weeks precautions reviewed 08/25/24 -?-?-?-?-?-?-?-?-?-?-?-?- 17w 4d 102.739 kg 137/77 absent unstable 147 at 17w4d with improved N/V, ongoing GERD symptoms, reports movement. US reassuring, FHR 147. Noted weight loss. Prior CS with successful , planning repeat . Plan: Start omeprazole, f/u 4w, GTT next visit, referral to [place] at 28w, Rx sent to [facility]. 12/11/24 -?-?-?-?-?-?-?-?-?-?-?-?- 33w 0d 110.677 kg 121/75 absent cephalic 34 15 5 active - Rosaura Holman is a 33-week female () presenting for care after a 4.5-month gap in visits due to personal circumstances. - Patient reports: - Missed several appointments due to hectic schedule and custody court proceedings for her other two children - Attended an ultrasound in [place] bu t missed glucose testing - Still considering vaginal after () - Has one more appointment scheduled wit [facility] specialist on January 03 (at 36 weeks gestation) - Denies any specific complaints or symptoms during this visit Plan - Order 1hr glucose, CBC, and RPR labs - Refer patient to [facility] for luis antonio henry - Schedule follow-up appointment in one week - Obtain and review all [facility] ultrasounds from current - Patient to attend scheduled appointmen t with [facility] on 01/03/2025 at 36 weeks gestation 12/21/24 -?-?-?-?-?-?-?-?-?-?-?-?- 34w 3d 110.733 kg 120/74 absent cephalic 35 14 5 active - Rosaura Holman is a 5 para 3 female at 34 weeks and 3 days gestation with a history of 2 previous C-sections presenting for care after being lost to follow-up for 3-jnx-f-half months. - She was seen here last week after the prolonged absence from care. - Patient desires (vaginal af ter ) for which she was referred to [facility], with referral still pending. - Catch-up labs were ordered during her recent visit. Plan - Order 3-hour glucose tolerance test - Pending referral to [facility] for co nsultation - Catch-up labs were ordered 12/28/24 -?-?-?-?-?-?-?-?-?-?-?-?- 35w 3d 109.996 kg 121/67 absent cephalic 37 15 8 active - Patient has been monitoring blood glucose at home with good control. - Fasting glucose: 89 mg/dL - Post-dinner glucose: 150 mg/dL - She reports a history of delivering ea rly, typically by 37 weeks gestation. - Patient has not yet heard back from [facility] facility despite being referred approximately one month ago. - She lives in [place] and expresses c oncern about potentially not making it to [facility] if she goes into labor. - Patient to call [facility] tomorrow morning for appointment scheduling, emphasizing tendency to deliver early and requesting early appointment - Continue home glucose monitoring - cur rent numbers are within acceptable range, no medication needed at this time - If labor begins, come to current [facility] rather than risk delivery en route to [facility] - Follow-up appointment scheduled in one week - Provider to provide [facility] phone number 01/05/25 -?-?-?-?-?-?-?-?-?-?-?-?- 36w 4d 112.945 kg 120/73 absent cephalic 37 15 0 active - She had a maternal- medicine ultrasound yesterday on January 04, 2025. - She reports intermittent contractions that are on and off, which she describes as normal for her. - She notes that with her previous pre gnancies, labor contractions came every 2 minutes right away. - She reports the baby is active. - She has not yet been scheduled with [facility] for care, with appointment planned for the of January. - A transfer request to [facility] has been placed for her deliver y. - Transfer care to [facility] for (vaginal after ) - Patient to call back today to schedule appointment with [facility] ( of January) - If labor begins before scheduled appoi ntment, go to [facility] (facilities that allow trial of labor) rather than current facility which would require section - Plan for induction between 39-40 weeks gestation to prevent scar rupture - If experiencing regular contractions e very 5 minutes, proceed to hospital immediately - Provide medical records to patient for transfer of care - Cervical exam and membrane sweep to be performed at 38+ weeks (next appointment or the one after) - GBS culture swab completed today 01/17/25 -?-?-?-?-?-?-?-?-?-?-?-?- 38w 2d 113.455 kg 122/74 absent cephalic 38 16 0 active - She was transferred to [facility] for trial of labor after (TOLAC) but reports she was never established with a provider there. - She called [facility] and was told that as long as she had her medical records, they could proceed from there. - Patient reports having contractions oc curring every 10 minutes. - She went into labor spontaneously with her previous delivery. - Patient expresses concern about what w ould happen if she does not go into labor naturally. - She has her medical records prepared f or transfer of care. - Patient has never been checked for cervical dilation during this . - Patient to transfer care to [facility] for trial of labor after (TOLAC) as current facility does not perform due to hospital policy - Patient instructed to present to [facility]/ [facility] with medical records if not delivered by due date - Membrane sweep performed to encourage labor onset - [facility] - Patient to return for care after delivery KRYSTIAN Calculator Estimated Delivery Date Method Current WG Current Estimate 01/29/25 Ultrasound #1 44w 3d Other Estimates 01/30/25 LMP (Certain) 44w 2d Notes Visit Date: 01/05/25 Last Updated by: Dheeraj Lopez MD - Date: 01/04/2025 - [facility] ultrasound at [facility]: Estimated weight 5 pounds, 15 ounces (35th percentile) Visit Date: 12/11/24 Last Updated by: Dheeraj Lopez MD - Ultrasound (09/20/2024): - Single living fetus - Gestational age: 21 weeks and 1 day - KRYSTIAN: 01/30/2025 - Composite age: 20 weeks and 6 days - Single pocket within normal limits - No gross structural abnormalities detected - Cervix: 4.8 cm with no funneling - Placenta: Anterior, no previa - Presentation: Breech - Normal uterus and adnexa - Ultrasound (07/08/2024): - Single living fetus - Gestational age: 28 weeks and 1 day - Estimated weight: 1201 grams (42nd percentile for gestational age) - YOLETTE: Normal - anatomy: Within normal limits - No abnormalities detected - Placenta: Anterior, no previa - Presentation: Cephalic - Normal uterus and adnexa Office Procedures OBC Clinic LOC & Office Proc's Nursing/Assessment Patient Status: Established Patient OB Clinic Nursing Assessment: Medication Reconciliation, Update PMH in EMR and Vital Signs OB Clinic Coordination of Care: Complex Care and Chronic Disease 1-5, Education Complex Pt/Fam, Consent,records obtained, informed consent, Lab and Imaging orders and Staff clarify orders Special Needs: Heart tones Miscellaneous Interventions: Culture Specimen Collection Established Patient Charge Established Patient Point Assignment: 150 Established Patient Point Charge: EP Level 4 (120-155) Assessment & Plan Diagnosis / Problem List (1) Abnormal glucose affecting : Status: Acute (2) Maternal care for low transverse scar from previous delivery: Status: Acute (3) Hx successful (vaginal after ), currently : Status: Acute Plan Problem List - at 36 weeks and 4 days gestation - History of delivery Assessment 36 weeks and 4 days gestation with history of prior section, currently planning vaginal after (). Recent maternal- medicine ultrasound shows estimated weight of 5 pounds 15 ounces at 35th percentile, which is appropriate for gestational age. Patient reports intermittent contractions that are irregular and not concerning at this time. Patient has been referred to [facility] for management with appointment scheduling pending for january. Group B Streptococcus culture obtained during this visit. Plan - Transfer care to [facility] for (vaginal after ) - Patient to call back today to schedule appointment with [facility] (january) - If labor begins before scheduled appointment, go to [facility] (facilities that allow trial of labor) rather than current facility which would require section - Plan for induction between 39-40 weeks gestation to prevent scar rupture - If experiencing regular contractions every 5 minutes, proceed to hospital immediately - Provide medical records to patient for transfer of care - Cervical exam and membrane sweep to be performed at 38+ weeks (next appointment or the one after) - GBS culture swab completed today 1. Progress Reviewed gestational age at 36 weeks and 4 days, growth with estimated weight of 5 pounds 15 ounces (35th percentile), and activity reported as normal. Planned frequent visits with next appointment scheduled. 2. Instructed patient to monitor movements and report decreases immediately. 3. Testing Counseled on routine third-trimester labs per guidelines. Discussed potential need for ultrasound or monitoring based on risk factors. 4. Preeclampsia Precaution Educated on preeclampsia signs: severe headache, vision changes, right upper quadrant pain, sudden swelling. Advised urgent reporting of symptoms and discussed blood pressure monitoring if high risk. 5. Labor Precautions Reviewed labor signs including regular contractions every 5 minutes, advised patient to time contractions and seek immediate care if contractions become regular, stronger, and closer together. Discussed that cervical checks and membrane sweeps will be deferred until 38 weeks to avoid triggering labor. 6. Lifestyle and Delivery Preparation Reinforced vitamins, nutrition, and safe activity. Discussed plan for (vaginal after ) with transfer to [facility] facility, planned induction between 39-40 weeks to prevent scar rupture, and advised patient to go to [facility] if labor begins before scheduled appointment as they allow trials. 7. Psychosocial Support Assessed emotional well-being and offered resources for mental health or parenting support.
[2025-01-05 13:09] VITALS: BP 120/73; PULSE 86; RESP 18; TEMP 36.7; O2SAT 98; BMI 40.0
== END 2025-01-05 13:25 | disposition home or self-care (01) ==
LOC: HODSOBC 13:00
PROVIDERS: PCP Obstetrics & Gynecology; Referring Provider Obstetrics & Gynecology; Supervising Provider Obstetrics & Gynecology; Visit Provider Obstetrics & Gynecology
DX: O09.293 Supervision of pregnancy with other poor reproductive or obstetric history, third trimester (principal); O34.211 Maternal care for low transverse scar from previous cesarean delivery; O09.893 Supervision of other high risk pregnancies, third trimester; O99.810 Abnormal glucose complicating pregnancy; Z3A.36 36 weeks gestation of pregnancy; Z36.85 Encounter for antenatal screening for Streptococcus B
CPT/HCPCS: 99214; G0463

== ENCOUNTER 2025-01-17 11:39 | Outpatient (AMB) | payer MEDICAID, SELFPAY ==
[2025-01-17 11:44] VITALS: BP 122/74; PULSE 83; RESP 18; TEMP 36.7; O2SAT 98; BMI 40.1
--- NOTE | 2025-01-17 11:44 | AMB.OBVISIT ---
Vital Signs 01/17/25 11:44 Height 1.68 m Height Method Stated Weight 113.455 kg Weight Measurement Method Standing Scale BMI 40.1 BP 122/74 Blood Pressure Source Automatic Cuff Blood Pressure Location Right Upper Arm Position Sitting Respiration 18 Pulse 83 Pulse Source Monitor Temp 98.0 F Temp Source Temporal Artery Scan Pulse Oximetry (%) 98 Oxygen Delivery Method Room Air Allergies/Home Meds Allergies & Medications Allergies No Known Allergies Allergy (Verified 01/17/25 11:45) Medication Reconciliation benzonatate 100 mg capsule 100 mg PO TID #14 caps 03/16/24 [Rx Confirmed 01/17/25] omeprazole 40 mg capsule,delayed release 40 mg PO QDAY 30 days #30 caps 08/25/24 [Rx Confirmed 01/17/25] blood sugar diagnostic (Blood Glucose Test strips) #100 ea 12/21/24 [Rx Confirmed 01/17/25] blood-glucose meter #1 ea 12/21/24 [Rx Confirmed 01/17/25] lancets 21 gauge #100 ea 12/21/24 [Rx Confirmed 01/17/25] Intake Visit Data Collection New Patient or Established: Established Patient (seen at [facility] within 3 years) Reason for Visit:: OBC Seen by Clinical Staff ONLY (RN/MA): No 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 Required: No Do You Feel Safe at Home: Yes Authorities Contacted: N/A PCP or OBGYN visit in last 3 months: Yes Date of Last PCP or OBGYN visit: 01/05/25 Hx Now: Yes Are you currently on any form of Control: No Pain Present Currently: No Pain Scale Used: Jerome-Spnan/Numerical Pain scale:: 0 Smoking Status Smoking Status: Never smoker Immunizations Flu Vaccine in the Last 12 Months: No Flu Vaccine Exclusion Criteria: No Exclusion Criteria Questionnaires Covid-19 Vaccine Questionnaire Has patient been vacinated for Covid-19 Have you been vacinated for Covid-19: No PHQ-9 PHQ-2 Over the last 2 weeks, how often have you been bothered by any of the following problems? 1. Little interest or pleasure in doing things: not at all 2. Feeling down, depressed, or hopeless: not at all Total score: 0 PHQ-9 3. Trouble falling or staying asleep, or sleeping too much: Not at all 4. Feeling tired or having little energy: Not at all 5. Poor appetite or overeating: Not at all 6. Feeling bad about yourself - or that you are a failure or have let yourself or your family down: Not at all 7. Trouble concentrating on things, such as reading the newspaper or watching television: Not at all 8. Moving or speaking so slowly that other people could have noticed? - Or the opposite - being so fidgety or restless that you have been moving around a lot more than usual: not at all 9. Thoughts that you would be better off or of hurting yourself in some way: Not at all Total score: 0 If you checked off any problems, how difficult have these problems made it for you to do your work, take care of things at home, or get along with other people?: not difficult at all Source: Developed by Drs. Lonny Rizzo, Shakila Agarwal, Greyson Welch and colleagues, with an educational kellie from [employer]. 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: Past Medical History Past Medical History: No Hx Neurological Disorders, No Hx Hyperthyroidism, No Hx Breast Cancer, No Hx Cardiac Disorders, No Hx Hypertension, No Hx Cancer, No Hx Anemia, No Hx Renal Disease, No Hx Diabetes Mellitus Type 1, No Hx Diabetes Mellitus Type 2 and No Hx Polycystic Ovarian Syndrome Care OB Visit Log OB Flowsheet Initial Weight: Not Recorded Date <del>?</del> EGA Weight BP Alb Glu CTX Pres Fundal ht FHR Mov Dilation Station Effacement Hx Notes Visit Note 06/26/24 <del>?</del> 9w 0d 103.079 kg 112/74 154 Rosaura Holman is a (3 vaginal deliveries, 1 ) presenting for her first visit at 8 weeks and 6 days gestation based on LMP. - Perform initial lab work including blood type, infection screening - Order genetic screening for Down syndrome and other genetic abnormalities - Transfer care to [facility] at 28-30 weeks gestation due to history of and current hospital's policy - Schedule 4-week follow-up appointment for next obstetric sonogram. - Continue [id number] vitamins - Provide education on option for gender reveal from genetic screening results - Follow up in 4 weeks for next obstetric sonogram 07/25/24 <del>?</del> 13w 1d 103.646 kg 137/77 at 13 weeks and 1 day gestation, presents for routine care. Reports nausea after vitamins and frequent headaches; no active nausea at visit. FHT 165 bpm. History of prior with successful . UTI with E. coli on culture. Plan: Prescribe antibiotics for UTI Refer to [facility] for anatomy scan in 20 days Gender results placed in sealed envelope May hold vitamins temporarily if nausea persists Return in 4 weeks precautions reviewed 08/25/24 <del>?</del> 17w 4d 102.739 kg 137/77 absent unstable 147 at 17w4d with improved N/V, ongoing GERD symptoms, reports movement. US reassuring, FHR 147. Noted weight loss. Prior CS with successful , planning repeat . Plan: Start omeprazole, f/u 4w, GTT next visit, referral to [place] at 28w, Rx sent to [facility]. 12/11/24 <del>?</del> 33w 0d 110.677 kg 121/75 absent cephalic 34 155 active - Rosaura Holman is a 33-week female () presenting for care after a 4.5-month gap in visits due to personal circumstances. - Patient reports: - Missed several appointments due to hectic schedule and custody court proceedings for her other two children - Attended an ultrasound in [place] but missed glucose testing - Still considering vaginal after () - Has one more appointment scheduled with [facility] specialist on January 03 (at 36 weeks gestation) - Denies any specific complaints or symptoms during this visit Plan - Order 1hr glucose, CBC, and RPR labs - Refer patient to [facility] for delivery - Schedule follow-up appointment in one week - Obtain and review all [facility] ultrasounds from current - Patient to attend scheduled appointment with [facility] on 01/03/2025 at 36 weeks gestation 12/21/24 <del>?</del> 34w 3d 110.733 kg 120/74 absent cephalic 35 145 active - Rosaura Holman is a 5 para 3 female at 34 weeks and 3 days gestation with a history of 2 previous C-sections presenting for care after being lost to follow-up for 9-oeh-a-half months. - She was seen here last week after the prolonged absence from care. - Patient desires (vaginal after ) for which she was referred to [facility], with referral still pending. - Catch-up labs were ordered during her recent visit. Plan - Order 3-hour glucose tolerance test - Pending referral to [facility] for consultation - Catch-up labs were ordered 12/28/24 <del>?</del> 35w 3d 109.996 kg 121/67 absent cephalic 37 158 active - Patient has been monitoring blood glucose at home with good control. - Fasting glucose: 89 mg/dL - Post-dinner glucose: 150 mg/dL - She reports a history of delivering early, typically by 37 weeks gestation. - Patient has not yet heard back from the [facility] facility despite being referred approximately one month ago. - She lives in [place] and expresses concern about potentially not making it to [facility] if she goes into labor. - [facility], emphasizing tendency to deliver early and requesting early appointment - Continue home glucose monitoring - current numbers are within acceptable range, no medication needed at this time - If labor begins, come to current facility rather than risk delivery en route to [facility] - Follow-up appointment scheduled in one week - Provider to provide [facility] phone number 01/17/25 <del>?</del> 38w 2d 113.455 kg 122/74 absent cephalic 38 160 active - She was transferred to [facility] for trial of labor after (TOLAC) but reports she was never established with a provider there. - She called [facility] and was told that as long as she had her medical records, they could proceed from there. - Patient reports having contractions occurring every 10 minutes. - She went into labor spontaneously with her previous delivery. - Patient expresses concern about what would happen if she does not go into labor naturally. - She has her medical records prepared for transfer of care. - Patient has never been checked for cervical dilation during this . - Patient to transfer care to [facility] for trial of labor after (TOLAC) as current facility does not perform due to hospital policy - Patient instructed to present to [facility] with medical records if not delivered by due date - Membrane sweep performed to encourage labor onset - No further appointments scheduled at current facility - Patient to return for care after delivery KRYSTIAN Calculator Estimated Delivery Date Method Current WG Current Estimate 01/29/25 Ultrasound #1 38w 2d Other Estimates 01/30/25 LMP (Certain) 38w 1d Notes Visit Date: 12/11/24 Last Updated by: Dheeraj Lopez MD - Ultrasound (09/20/2024): - Single living fetus - Gestational age: 21 weeks and 1 day - KRYSTIAN: 01/30/2025 - Composite age: 20 weeks and 6 days - Single pocket within normal limits - No gross structural abnormalities detected - Cervix: 4.8 cm with no funneling - Placenta: Anterior, no previa - Presentation: Breech - Normal uterus and adnexa - Ultrasound (07/08/2024): - Single living fetus - Gestational age: 28 weeks and 1 day - Estimated weight: 1201 grams (42nd percentile for gestational age) - YOLETTE: Normal - anatomy: Within normal limits - No abnormalities detected - Placenta: Anterior, no previa - Presentation: Cephalic - Normal uterus and adnexa Office Procedures OBC Clinic LOC & Office Proc's Nursing/Assessment Patient Status: Established Patient OB Clinic Nursing Assessment: Medication Reconciliation, Update PMH in EMR and Vital Signs OB Clinic Coordination of Care: Complex Care and Chronic Disease 1-5, Education Complex Pt/Fam, Consent,records obtained, informed consent, Results/Orders obtained and Staff clarify orders Special Needs: Heart tones Established Patient Charge Established Patient Point Assignment: 125 Established Patient Point Charge: EP Level 4 (120-155) Assessment & Plan Diagnosis / Problem List (1) Abnormal glucose affecting : Status: Acute (2) Hx successful (vaginal after ), currently : Status: Acute Plan Problem List - at 38 weeks and 2 days gestation - History of section - Group B Streptococcus negative Assessment 38-week 2-day patient with history of successful presenting for care. Patient is experiencing contractions every 10 minutes and has previously gone into spontaneous labor. Cervical examination reveals less than 1 centimeter dilation with cervical dimpling noted. GBS culture is negative. Patient has been transferred to [facility] for trial of labor after (TOLAC) as current facility does not perform due to hospital policy and would require delivery. Membrane sweeping was performed during examination. Plan - Patient to transfer care to [facility] for trial of labor after (TOLAC) as current facility does not perform due to hospital policy - Patient instructed to present to [facility] facility with medical records if not delivered by due date - Membrane sweep performed to encourage labor onset - No further appointments scheduled at current facility - Patient to return for care after delivery 1. Progress Reviewed gestational age at 38 weeks and 2 days, growth, and heart rate of 148 bpm (normal). Patient experiencing contractions every 10 minutes. Cervical examination revealed less than 1 centimeter dilation. Membrane sweeping performed to encourage labor onset. 2. Instructed patient to monitor movements and report decreases immediately. 3. Testing GBS culture was negative. Patient has medical records prepared for transfer of care to [facility] for TOLAC (Trial of Labor After ). 4. Preeclampsia Precaution Educated on preeclampsia signs: severe headache, vision changes, right upper quadrant pain, sudden swelling. Advised urgent reporting of symptoms and discussed blood pressure monitoring if high risk. 5. Labor Precautions Patient currently at term (38+2 weeks). Discussed current contraction pattern and natural labor progression given her history of successful . 6. Lifestyle and Delivery Preparation Discussed plan for at [facility] due to hospital policy restrictions at current facility. Patient counseled that if labor does not occur spontaneously, she should present to [facility] where induction can be considered. Advised that would be required at current facility due to policy limitations for . 7. Psychosocial Support Patient expressed concerns about delivery options and timing. Provided reassurance about likelihood of spontaneous labor given her previous successful history. Discussed contingency plans and importance of having established care at facility that supports TOLAC.
== END 2025-01-17 11:52 | disposition home or self-care (01) ==
LOC: HODSOBC 11:39
PROVIDERS: Supervising Provider Obstetrics & Gynecology; Visit Provider Obstetrics & Gynecology
DX: O09.893 Supervision of other high risk pregnancies, third trimester (principal); O99.810 Abnormal glucose complicating pregnancy; O09.293 Supervision of pregnancy with other poor reproductive or obstetric history, third trimester; O34.219 Maternal care for unspecified type scar from previous cesarean delivery; Z3A.38 38 weeks gestation of pregnancy
CPT/HCPCS: 99214; G0463